=== PATIENT | male | born 1995 | race African-American/Black ===

== ENCOUNTER 2017-02-03 20:21 | Emergency (ER) | payer OTHER ==
[2017-02-03 20:31] VITALS: BP 112/59; PULSE 112; RESP 18; TEMP 99
--- NOTE | 2017-02-03 20:45 | ED ---
General Adult HPI - General Chief complaint: Wound/Laceration Stated complaint: 16 stiches to be removed Time Seen by Provider: 02/03/17 20:38 Source: patient, RN notes reviewed Mode of arrival: ambulatory Limitations: no limitations - History of Present Illness Initial comments: Patient 21-year-old male who presents emergency room today with a chief complaint of suture removal. Patient states that he had these placed by a primary physician Ayan. He states that there is plus, Tuesday but he still been having them out earlier she can return to work. Patient admits that he hurt this while at work. 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 Patient denies any complaints at this time. Patient denies any recent fever, chills, shortness of breath, chest pain, back pain, abdominal pain, nausea or vomiting, numbness or tingling, dysuria or hematuria, constipation or diarrhea, headaches or visual changes, or any other complaints. - Related Data Home Medications Medication Instructions Recorded Confirmed No Known Home Medications [No 02/03/17 02/03/17 Known Home Medications] Allergies Allergy/AdvReac Type Severity Reaction Status Date / Time No Known Allergies Allergy Verified 02/03/17 20:47 Review of Systems ROS Statement: Those systems with pertinent positive or pertinent negative responses have been documented in the HPI. ROS Other: All systems not noted in ROS Statement are negative. Past Medical History Past Medical History: No Reported History History of Any Multi-Drug Resistant Organisms: None Reported Past Surgical History: No Surgical Hx Reported Past Psychological History: No Psychological Hx Reported Smoking Status: Current every day smoker Past Alcohol Use History: None Reported Past Drug Use History: None Reported General Exam - General Exam Comments Initial Comments: General: The patient is awake and alert, in no distress, and does not appear acutely ill. Neck: The neck is supple, there is no tenderness or JVD. Cardiovascular: There is a regular rate and rhythm. No murmur, rub or gallop is appreciated. Respiratory: Lungs are clear to auscultation, respirations are non-labored, breath sounds are equal. No wheezes, stridor, rales, or rhonchi. Musculoskeletal: Sensation intact pulses equal bilaterally 2+. Strength 5/5. Good range of motion. Neurological: A&O x 3. CN II-XII intact, There are no obvious motor or sensory deficits. Coordination appears grossly intact. Speech is normal. Skin: Laceration to the volar aspect of the right fifth digit from the DIP to the distal end. No active bleeding. Psychiatric: Normal mood and affect. Limitations: no limitations Course Vital Signs 02/03/17 20:28 Temperature 99.0 F Pulse Rate 112 H Respiratory 18 Rate Blood Pressure 112/59 O2 Sat by Pulse 97 Oximetry Medical Decision Making - Medical Decision Making Patient's sutures removed. Nurses that her in the emergency room. Advised to continue with. Advised return for any other concerns. Disposition Clinical Impression: Visit for suture removal Disposition: HOME SELF-CARE Condition: Good Instructions: Stitches Removal (ED) Referrals: None,Stated [Primary Care Provider] - 1-2 days Time of Disposition: 21:55
== END 2017-02-03 21:58 | disposition home or self-care (01) ==
LOC: EC 20:21
DX: Z48.02 Encounter for removal of sutures (principal); F17.200 Nicotine dependence, unspecified, uncomplicated
CPT/HCPCS: 99282

== ENCOUNTER 2023-08-05 12:37 | Emergency (ER) | payer OTHER ==
[2023-08-05 13:09] VITALS: RESP 18; TEMP 98.1
--- NOTE | 2023-08-05 13:16 | ED ---
Eye Problem HPI - General Chief complaint: Eye Problems Stated complaint: Eye Swelling Time Seen by Provider: 08/05/23 12:52 Source: patient, RN notes reviewed Mode of arrival: ambulatory Limitations: no limitations - History of Present Illness Initial comments: This is a 28-year-old male who presents to the emergency department for left eye pain and swelling. States that it started a week ago. Denies any injuries. She states that it is painful both at rest and with movement of the eye itself. He has minor visual difficulty. He does not wear glasses or contacts. Denies any upper respiratory symptoms. Feels like he may have started to get some drainage from the eye itself. MD chief complaint: eye pain - Related Data Previous Rx's Medication Instructions Recorded Cefdinir [Omnicef] 300 mg PO Q12HR 7 Days #14 capsule 08/05/23 Sulfamethox-Tmp 800-160Mg [Bactrim 1 tab PO Q12HR 7 Days #14 tab 08/05/23 DS 800-160 mg] Allergies Allergy/AdvReac Type Severity Reaction Status Date / Time No Known Allergies Allergy Verified 08/05/23 12:49 Review of Systems ROS Statement: Those systems with pertinent positive or pertinent negative responses have been documented in the HPI. ROS Other: All systems not noted in ROS Statement are negative. Past Medical History Past Medical History: No Reported History History of Any Multi-Drug Resistant Organisms: None Reported Past Surgical History: No Surgical Hx Reported Past Psychological History: No Psychological Hx Reported Smoking Status: Current every day smoker Past Alcohol Use History: Occasional Past Drug Use History: Marijuana General Exam Limitations: no limitations General appearance: alert, in no apparent distress Head exam: Present: atraumatic, normocephalic, normal inspection Eye exam: Present: PERRL, other (Left periorbital swelling and tenderness. Extraocular movements are intact, however this does induce pain.) Respiratory exam: Present: normal lung sounds bilaterally. Absent: respiratory distress, wheezes, rales, rhonchi, stridor Cardiovascular Exam: Present: regular rate, normal rhythm, normal heart sounds. Absent: systolic murmur, diastolic murmur, rubs, gallop, clicks Neurological exam: Present: alert, oriented X3, CN II-XII intact Psychiatric exam: Present: normal affect, normal mood Skin exam: Present: warm, dry, intact, normal color. Absent: rash Course Vital Signs 08/05/23 08/05/23 12:45 14:42 Temperature 98.1 F 98.1 F Pulse Rate 84 61 Respiratory 18 18 Rate Blood Pressure 122/83 117/76 O2 Sat by Pulse 99 99 Oximetry Medical Decision Making - Medical Decision Making This is 28 year old male who presents to the emergency department for left eye pain and swelling. Was pt. sent in by a medical professional or institution? @ -No Did you speak to anyone other than the patient for history? @ -No Did you review nursing and triage notes? @ -Yes, and I agree, it is accurate with regards to the patient's symptoms. Were old charts reviewed? @ -No Differential Diagnosis? @ -Differential Eye Pain: Conjuncitivitis (viral, bacterial, allergic), corneal abrasion, foreign body, iritis, uveitis, keratitis, acute angle closure glaucoma, this is not meant to be an all-inclusive list. EKG interpreted by me (3pts min.)? @ -Not obtained X-rays interpreted by me (1pt min.)? @ -Not obtained CT interpreted by me (1pt min.)? @ -CT scan of the orbits obtained. My interpretation identifies soft tissue swelling over the left orbit. U/S interpreted by me (1pt. min.)? @ -Not obtained What testing was considered but not performed? (CT, X-rays, U/S, labs)? Why? @ -None What meds were considered but not given? Why? @ -None Did you discuss the management of the patient with other professionals? @ -No Did you reconcile home meds? @ -No Was smoking cessation discussed for >3mins.? @ -I discussed smoking cessation for greater than 3 minutes. The risk of smoking were discussed with the patient including but not limited to risks of cancer, stroke, coronary artery disease and COPD. Also discussed with patient were multiple methods of quitting smoking. Lastly we discussed the financial cost of smoking. Was critical care preformed (if so, how long)? @ -No Were there social determinants of health that impacted care today? How? (Home lessness, low income, unemployed, alcoholism, drug addiction, transportation, low edu. Level, literacy, decrease access to med. care, retirement, rehab)? @ -No Was there de-escalation of care discussed even if they declined? (Discuss DNR or withdrawal of care, Hospice)? @ -No What co-morbidities impacted this encounter? (DM, HTN, Smoking, COPD, CAD, Cancer, CVA, Hep., AIDS, mental health diagnosis, sleep apnea, morbid obesity)? @ -Smoking Was patient admitted / discharged? @ -Discharged. Physical examination concerning for periorbital versus orbital cellulitis. Given that the patient had pain with extraocular movements, we did do a more in-depth workup for evaluation of potential orbital cellulitis. Lab work obtained and found to be unremarkable, including no evidence of leukocytosis or elevated inflammatory markers. Computed tomography scan of the orbits obtained demonstrating preseptal soft tissue swelling suggestive of preseptal cellulitis. Tetanus vaccine is up to date. Rx for Bactrim and Cefdinir provided with dosing instructions reviewed. Advised Ibuprofen and Tylenol as needed for pain relief. Patient discharged home in stable condition. Undiagnosed new problem with uncertain prognosis? @ -None Drug Therapy requiring intensive monitoring for toxicity (Heparin, Nitro, Insulin, Cardizem)? @ -None Were any procedures done? @ -None Diagnosis/symptom? @ -Periorbital cellulitis Acute, or Chronic, or Acute on Chronic? @ -Acute Uncomplicated (without systemic symptoms) or Complicated (systemic symptoms)? @ -Uncomplicated Side effects of treatment? @ -None Exacerbation, Progression, or Severe Exacerbation] @ -Not applicable Poses a threat to life or bodily function? @ -Unlikely Return precautions reviewed in depth, the patient is instructed to return to the emergency department with any new, worsening, or concerning symptoms. Patient verbalized understanding. This case was discussed in detail with the attending ED physician, Dr. Graham. Presentation, findings, and treatment plan discussed in detail as well. - Lab Data Result diagrams: 08/05/23 13:17 08/05/23 13:17 Lab Results 08/05/23 08/05/23 08/05/23 Range/Units 13:17 13:17 13:17 WBC 6.7 (3.8-10.6) k/uL RBC 4.28 L (4.30-5.90) m/uL Hgb 13.8 (13.0-17.5) gm/dL Hct 41.0 (39.0-53.0) % MCV 95.8 (80.0-100.0) fL MCH 32.2 (25.0-35.0) pg MCHC 33.6 (31.0-37.0) g/dL RDW 12.3 (11.5-15.5) % Plt Count 171 (150-450) k/uL MPV 8.3 Neutrophils % 69 % Lymphocytes % 24 % Monocytes % 3 % Eosinophils % 2 % Basophils % 1 % Neutrophils # 4.6 (1.3-7.7) k/uL Lymphocytes # 1.6 (1.0-4.8) k/uL Monocytes # 0.2 (0-1.0) k/uL Eosinophils # 0.2 (0-0.7) k/uL Basophils # 0.1 (0-0.2) k/uL Sodium 143 (137-145) mmol/L Potassium 4.0 (3.5-5.1) mmol/L Chloride 109 H (98-107) mmol/L Carbon Dioxide 30 (22-30) mmol/L Anion Gap 4 mmol/L BUN 14 (9-20) mg/dL Creatinine 0.86 (0.66-1.25) mg/dL Est GFR (CKD-EPI)AfAm >90 (>60 ml/min/1.73 sqM) Est GFR (CKD-EPI)NonAf >90 (>60 ml/min/1.73 sqM) Glucose 98 (74-99) mg/dL Plasma Lactic Acid Tyron 0.6 L (0.7-2.0) mmol/L Calcium 9.9 (8.4-10.2) mg/dL Total Bilirubin 0.6 (0.2-1.3) mg/dL AST 23 (17-59) U/L ALT 15 (4-49) U/L Alkaline Phosphatase 76 (38-126) U/L C-Reactive Protein <0.5 (<1.0) mg/dL Total Protein 7.6 (6.3-8.2) g/dL Albumin 4.7 (3.5-5.0) g/dL Influenza Type A (PCR) (Not Detectd) Influenza Type B (PCR) (Not Detectd) RSV (PCR) (Not Detectd) SARS-CoV-2 (PCR) (Not Detectd) 08/05/23 Range/Units 13:17 WBC (3.8-10.6) k/uL RBC (4.30-5.90) m/uL Hgb (13.0-17.5) gm/dL Hct (39.0-53.0) % MCV (80.0-100.0) fL MCH (25.0-35.0) pg MCHC (31.0-37.0) g/dL RDW (11.5-15.5) % Plt Count (150-450) k/uL MPV Neutrophils % % Lymphocytes % % Monocytes % % Eosinophils % % Basophils % % Neutrophils # (1.3-7.7) k/uL Lymphocytes # (1.0-4.8) k/uL Monocytes # (0-1.0) k/uL Eosinophils # (0-0.7) k/uL Basophils # (0-0.2) k/uL Sodium (137-145) mmol/L Potassium (3.5-5.1) mmol/L Chloride (98-107) mmol/L Carbon Dioxide (22-30) mmol/L Anion Gap mmol/L BUN (9-20) mg/dL Creatinine (0.66-1.25) mg/dL Est GFR (CKD-EPI)AfAm (>60 ml/min/1.73 sqM) Est GFR (CKD-EPI)NonAf (>60 ml/min/1.73 sqM) Glucose (74-99) mg/dL Plasma Lactic Acid Tyron (0.7-2.0) mmol/L Calcium (8.4-10.2) mg/dL Total Bilirubin (0.2-1.3) mg/dL AST (17-59) U/L ALT (4-49) U/L Alkaline Phosphatase (38-126) U/L C-Reactive Protein (<1.0) mg/dL Total Protein (6.3-8.2) g/dL Albumin (3.5-5.0) g/dL Influenza Type A (PCR) Not Detected (Not Detectd) Influenza Type B (PCR) Not Detected (Not Detectd) RSV (PCR) Not Detected (Not Detectd) SARS-CoV-2 (PCR) Not Detected (Not Detectd) - Radiology Data Radiology results: report reviewed, image reviewed Disposition Clinical Impression: Periorbital cellulitis of left eye Disposition: HOME SELF-CARE Instructions (If sedation given, give patient instructions): Periorbital C ellulitis in Adults (ED) Additional Instructions: Return to the emergency department with any new, worsening, or concerning symptoms. Take both antibiotics as prescribed for 7 days. Alternate with ibuprofen and Tylenol as needed for pain relief. Follow up with your primary care provider in 1-2 days. Prescriptions: Sulfamethox-Tmp 800-160Mg [Bactrim DS 800-160 mg] 1 tab PO Q12HR 7 Days #14 tab Cefdinir [Omnicef] 300 mg PO Q12HR 7 Days #14 capsule Is patient prescribed a controlled substance at d/c from ED?: No Referrals: None,Stated [Primary Care Provider] - 1-2 days Time of Disposition: 15:00
[2023-08-05 13:32] LABS: Basophils # (A) 0.1 k/uL (0-0.2); Basophils % (A) 1 %; Eosinophils # (A) 0.2 k/uL (0-0.7); Eosinophils % (A) 2 %; HGB 13.8 gm/dL (13.0-17.5); Lymphocytes # (A) 1.6 k/uL (1.0-4.8); Lymphocytes % (A) 24 %; MCH 32.2 pg (25.0-35.0); MCHC 33.6 g/dL (31.0-37.0); MCV 95.8 fL (80.0-100.0); Mean Platelet Volume 8.3; Monocytes # (A) 0.2 k/uL (0-1.0); Monocytes % (A) 3 %; Neutrophils # (A) 4.6 k/uL (1.3-7.7); Neutrophils % (A) 69 %; Platelet Count 171 k/uL (150-450); RBC 4.28 m/uL (4.30-5.90); RDW 12.3 % (11.5-15.5); WBC 6.7 k/uL (3.8-10.6)
[2023-08-05 13:56] LABS: ALT 15 U/L (4-49); AST 23 U/L (17-59); African American GFR (CKD) >90 (>60 ml/min/1.73 sqM); Albumin 4.7 g/dL (3.5-5.0); Alkaline Phosphatase 76 U/L (38-126); Anion Gap 4 mmol/L; Blood Urea Nitrogen 14 mg/dL (9-20); Calcium 9.9 mg/dL (8.4-10.2); Carbon Dioxide 30 mmol/L (22-30); Chloride 109 mmol/L (98-107); Glucose 98 mg/dL (74-99); Non-African American GFR(CKD) >90 (>60 ml/min/1.73 sqM); Sodium 143 mmol/L (137-145); Total Bilirubin 0.6 mg/dL (0.2-1.3); Total Protein 7.6 g/dL (6.3-8.2)
[2023-08-05 14:01] LABS: C Reactive Protein <0.5 mg/dL (<1.0)
--- NOTE | 2023-08-05 14:50 | CT ---
CT orbits with contrast. HISTORY: Left eye pain and swelling for one week. COMPARISON: None. TECHNIQUE: Multiple axial images obtained through the orbits following the uneventful administration of nonionic IV contrast material. The globes are intact. The paranasal sinuses are well aerated. There is no intraconal or extraconal mass. The lacrimal glands are normal and symmetric. There is [id number] soft tissue swelling over left orbit. There is no discrete mass or fluid co llection. The extraocular muscles are normal and symmetric.. IMPRESSION: Preseptal soft tissue swelling suggestive of preseptal cellulitis. The intraorbital contents are norm al and symmetric.
[2023-08-05 15:13] VITALS: BP 117/76; PULSE 61
[2023-08-05 19:18] LABS: Erythrocyte Sedimentation Rate 2 mm/Hr (0-15)
== END 2023-08-05 15:09 | disposition home or self-care (01) ==
LOC: EC 12:37
DX: L03.213 Periorbital cellulitis (principal); F17.210 Nicotine dependence, cigarettes, uncomplicated; F12.90 Cannabis use, unspecified, uncomplicated; Z20.822 Contact with and (suspected) exposure to COVID-19
CPT/HCPCS: 36415; 80053; 85652; 83605; 85025; 86140; 87636; 70481; 99406; 99284; Q9967